=== PATIENT | female | born 1970 | race Caucasian/White ===

== ENCOUNTER → 2019-06-16 11:50 | Outpatient (CLI) | payer BC, SELFPAY ==
--- NOTE | ~2019-06-16 | XR_ITS ---
XR chest 2V DATE: 06/16/2019 12:16 INDICATION: Cough and shortness of breath for 2 weeks TECHNIQUE: 2 views COMPARISON: None FINDINGS: Normal heart size. No hilar or mediastinal enlargement. No pulmonary infiltrate or consolid ation, pleural effusion or pulmonary vascular congestion or pneumothorax. IMPRESSION: No active cardiopulmonary disease Reviewed, dictated and finalized at location B. SPECIALIST
== END ==
DX: R05 Cough (principal); R06.02 Shortness of breath
CPT/HCPCS: 71046

== ENCOUNTER 2020-04-13 13:20 | Emergency (ER) | payer OTHER, SELFPAY ==
--- NOTE | ~2020-04-13 | XR_ITS ---
XR chest 2V DATE: 04/13/2020 13:52 INDICATION: Cough and shortness of breath for 2 weeks TECHNIQUE: PA and lateral views COMPARISON: 06/16/2019 2 view chest FINDINGS: Normal heart size. No hilar or mediastinal enlargement. Lungs are moderately hyperinflated but clear of infiltrate or consolidation. No pleural effusion or pulmonary vascular congestion or pne umothorax. Several clips overlie the upper abdomen on the lateral view, likely due to cholecystectomy . IMPRESSION: Bilateral hyperinflation; no active cardiopulmonary disease Reviewed, dictated and finalized at location B. GEMENT MGR
[2020-04-13 13:28] VITALS: BP 126/76; PULSE 94; RESP 18; TEMP 37.2; O2SAT 99
--- NOTE | 2020-04-13 13:58 | ED.URI ---
HPI - URI/Sore Throat General Chief Complaint: Upper Respiratory Infection Stated Complaint: shortness of breath/fever Source: patient Mode of arrival: ambulatory Limitations: no limitations History of Present Illness HPI Narrative: Patient is a 49-year-old female who presents complaining of shortness of breath, malaise and intermittent fever. Patient was Covid positive in December and spent 10 days in hospital on anticoagulants for Covid. Patient reports being around multiple Covid positive friends unmask over the past week. Patient had repeat Covid testing last week with negative results on 04/10. Patient was sent by PCP for chest x-ray. She reports mildly short of breath and states I am just so tired. She has recently been on steroids and using inhaler frequently. Related Data Home Medications Medication Instructions Recorded Confirmed albuterol 90 mcg INHALATION Q4-6H PRN 04/13/20 04/13/20 methylprednisolone [Medrol (Abiodun)] 0 mg PO PER PKG DIR 04/13/20 04/13/20 zolpidem 5 mg PO HS PRN 04/13/20 04/13/20 Allergies Allergy/AdvReac Type Severity Reaction Status Date / Time Penicillins Allergy Hives Verified 04/13/20 13:43 Sulfa (Sulfonamide Allergy Rash Verified 04/13/20 13:43 Antibiotics) Review of Systems Review of Systems: Narrative: CONSTITUTIONAL: Reports intermittent fever, and decreased energy EYES: Denies visual changes, redness, or discharge. ENT: Denies rhinorrhea, congestion, sore throat, or otalgia. CARDIOVASCULAR: Denies chest pain, palpitations, or edema. RESPIRATORY: Reports dyspnea with exertion, chest tightness GASTROINTESTINAL: Denies abdominal pain, nausea, vomiting, or diarrhea. GENITOURINARY: Denies dysuria or hematuria. SKIN: Denies rash or itching. MUSCULOSKELETAL: Denies back pain, joint pain, or myalgia. NEUROLOGIC: Denies headache, numbness, dizziness, or weakness. PSYCHIATRIC: Denies anxiety or depression. [facility] Past Medical History Medical History Anxiety Asthma Closed left ankle fracture COVID-19 Surgical History Surgical History H/O oophorectomy History of appendectomy Hx of cholecystectomy Exam Narrative: Exam Narrative: GENERAL: Well-appearing, well-nourished, and in no acute distress. HEAD: Normocephalic, atraumatic. EYES: Conjunctiva are normal. ENT: Mucous membranes pink and moist. Nares clear. No rhinorrhea. Throat normal. Uvula midline. NECK: No lymphadenopathy. CHEST: No respiratory distress. Clear to auscultation. EXTREMITIES: Normal range of motion. SKIN: Warm, dry, no rash. NEURO: No focal deficits. Alert and oriented x3. Gait steady. PSYCH: Normal affect. No signs of depression or anxiety. Course Vital Signs Vital signs: Vital Signs Temperature 37.2 C 04/13/20 13:28 Pulse Rate 94 04/13/20 13:28 Respiratory Rate 18 04/13/20 13:28 Blood Pressure 126/76 04/13/20 13:28 Pulse Oximetry 99 04/13/20 13:28 Temperature 37.2 C 04/13/20 13:28 Pulse Rate 94 04/13/20 13:28 Respiratory Rate 18 04/13/20 13:28 Blood Pressure 126/76 04/13/20 13:28 Pulse Oximetry 99 04/13/20 13:28 Reviewed Transfer Transfered to: [facility] Transportation: Other (Patient reports that she will drive, refused EMS) Transfer rationale: Higher level of care Accepting physician: Dr. Ledezma Transfer comments: Reports given to LAUREN Jones. MDM - URI/Sore Throat MDM Narrative Medical decision making narrative: Patient's chest x-ray is negative. Patient continues to report intermittent fevers. Negative Covid testing on Sunday. Patient was positive for Covid in December with a 10-day hospital stay and on anticoagulants. Patient to be sent to the emergency department for further evaluation and possible diagnostic testing. Patient is aware and agrees with plan of care. Patient is stable for transfer. Differential Diagnosis
== END 2020-04-13 14:35 | disposition short-term general hospital (02) ==
PROVIDERS: Emergency Provider Nurse Practitioner; PCP Family Medicine
DX: J06.9 Acute upper respiratory infection, unspecified (principal); Z86.19 Personal history of other infectious and parasitic diseases; J45.909 Unspecified asthma, uncomplicated
CPT/HCPCS: 71046; 99212; 99213; G0463

== ENCOUNTER 2021-04-07 11:43 | Outpatient (CLI) | payer OTHER, SELFPAY ==
--- NOTE | ~2021-04-07 | XR_ITS ---
EXAMINATION: XR ankle LT min 3V EXAM DATE: 04/07/2021 12:17 INDICATION: Chronic Pain Of Lt Ankle . Pt Rolled Left Ankle 4 Months Ago And C/O Ongoing Pain And Swe lling. Pt Has Hx Of Fracture Repair Of The Left Ankle 5 Years Ago. TECHNIQUE: Left ankle frontal, lateral and oblique projections obtained and reviewed. There is no pr ior study for comparison. FINDINGS: The left ankle mortise appears intact. There is lateral fibular fixation plate with supp orting screws. There are medial malleolar screws. No lucency surrounding these. There may have been a prior screw bridging the distal tibiofibular syndesmosis, which has been removed. There is mild left ankle osteoarthritis without osteochondral defect identified. IMPRESSION: 1. Intact left ankle hardware. 2. Mild ankle osteoarthritis, could be primary or secondary to prior injury. Reviewed, dictated and finalized at location A. [employer]CTION GRIP
== END 2021-04-07 11:44 | disposition home or self-care (01) ==
LOC: ANHIMG 11:57
PROVIDERS: PCP Internal Medicine; Visit Provider Internal Medicine
DX: M19.072 Primary osteoarthritis, left ankle and foot (principal)
CPT/HCPCS: 73610